=== PATIENT | male | born 1940 | race Caucasian/White ===

== ENCOUNTER 2019-03-28 21:14 | Inpatient (IN) | payer MEDICARE, OTHER ==
[~2019-03-28] VITALS: Ht 180.3 cm; Wt 145.0 kg
[2019-03-28] MEDS ORDERED: ONDANSETRON HCL 4 MG/2 ML VIAL ONE (21:34)
[2019-03-28] MEDS ORDERED: ONDANSETRON HCL 4 MG/2 ML VIAL IV ONE (21:45)
[2019-03-28] MEDS ORDERED: PROMETHAZINE HCL 25 MG/ML 1ML ONE (22:11)
[2019-03-28] MEDS ORDERED: methylPREDNISolone SOD SUCC 125 MG/2 ML VL ONE (22:11)
[2019-03-28] MEDS ORDERED: ALBUTEROL SULF 2.5 MG/0.5ML(0.5%) NEB SOLN NEB ONE (22:30)
[2019-03-28] MEDS ORDERED: PROMETHAZINE HCL 25 MG/ML 1ML IV ONE (22:30)
[2019-03-28] MEDS ORDERED: methylPREDNISolone SOD SUCC 125 MG/2 ML VL IV ONE (22:30)
[2019-03-28] MEDS ORDERED: IPRATROPIUM BROM 0.5 MG/2.5ML INH SOL NEB ONE (22:30)
[2019-03-28 22:32] LABS: Basophils # (auto) 0 uL; Basophils % (auto) 0.3 % (0.0-2.0); Eosinophils # (auto) 0.3 uL; Eosinophils % (auto) 2.4 % (0.0-7.0); Hematocrit 48.3 % (41.0-53.0); Hemoglobin 16.2 g/dL (13.5-17.5); Lymphocytes # (auto) 0.9 uL; Lymphocytes % (auto) 6.9 % (10.0-50.0); Mean Corpuscular Hemoglobin 29.7 pg (28.0-32.0); Mean Corpuscular Hgb Conc. 33.6 g/dL (32.0-36.0); Mean Corpuscular Volume 88.5 fL (80.0-100.0); Monocytes # (auto) 1.2 uL; Neutrophils # (auto) 10.4 uL; Neutrophils % (auto) 81.4 % (37.0-80.0); Platelet Count (auto) 176 10^3/uL (140-450); Red Blood Cells 5.45 10^6/uL (4.5-5.90); Red Cell Distribution Width 13.3 % (11.8-14.3); White Blood Cell 12.8 10^3/uL (4.4-10.8)
[2019-03-28 22:49] LABS: Alanine Aminotransferase 48 U/L (16-61); Albumin 3.8 g/dL (3.4-5.0); Anion Gap 7 (5-15); Aspartate Aminotransferase 35 U/L (15-37); BUN/Creatinine Ratio 10.3; Blood Urea Nitrogen 12 mg/dL (7-18); Calcium 8.3 mg/dL (8.5-10.1); Carbon Dioxide 22 mmol/L (21-32); Chloride 111 mmol/L (98-107); GFR African American 78 mL/min; GFR Non-African American 64 mL/min; Glucose 129 mg/dL (74-106); Potassium 4.2 mmol/L (3.5-5.1); Sodium 140 mmol/L (136-145)
[2019-03-28 22:52] LABS: Alkaline Phosphatase 69 U/L (45-117); Amylase 64 U/L (25-115); Bilirubin, Total 0.5 mg/dL (0.2-1.0); Lipase 316 U/L (73-393); Total Protein 7.1 g/dL (6.4-8.2)
[2019-03-28] MEDS ORDERED: FUROSEMIDE 40 MG/4 ML VIAL IV ONE (23:30)
[2019-03-29 00:49] LABS: Urine WBC None Seen /hpf (0 - 3)
[2019-03-29 01:04] LABS: Urine Bacteria FEW /hpf (None Seen); Urine Blood Negative /uL (Negative); Urine Specific Gravity 1.004 (1.001-1.035)
[2019-03-29] MEDS ORDERED: PRA25T PO (01:37)
[2019-03-29] MEDS ORDERED: ALBUAER3 IN (01:37)
[2019-03-29] MEDS ORDERED: TADA5TAB11 PO (01:37)
[2019-03-29] MEDS ORDERED: ROSU20TA14 PO (01:37)
[2019-03-29] MEDS ORDERED: CLOP75TA41 PO (01:37)
[2019-03-29] MEDS ORDERED: CARV25TA55 PO (01:37)
[2019-03-29] MEDS ORDERED: PREG100C PO (01:37)
[2019-03-29] MEDS ORDERED: TAMS1CAP25 PO (01:37)
[2019-03-29] MEDS ORDERED: PANT1INJ3 IV (01:37)
[2019-03-29] MEDS ORDERED: HYDR25TA4 PO (01:37)
[2019-03-29] MEDS ORDERED: ACLI1AER2 IN ×2 (01:37)
[2019-03-29] MEDS ORDERED: DOCUSATE SOD 100 MG CAP PO PRN (02:00)
[2019-03-29] MEDS ORDERED: ONDANSETRON HCL 4 MG/2 ML VIAL IV PRN (02:00)
[2019-03-29] MEDS ORDERED: ACETAMINOPHEN 325 MG TAB PO PRN (02:00)
[2019-03-29] MEDS: cefTRIAXone 1GM/50ML D5W 50 ML IV SCH (03:02)
[2019-03-29 06:10] LABS: Basophils # (auto) 0 uL; Basophils % (auto) 0.1 % (0.0-2.0); Eosinophils # (auto) 0 uL; Eosinophils % (auto) 0.1 % (0.0-7.0); Hematocrit 50.9 % (41.0-53.0); Hemoglobin 17.2 g/dL (13.5-17.5); Lymphocytes # (auto) 0.5 uL; Lymphocytes % (auto) 3.8 % (10.0-50.0); Mean Corpuscular Hemoglobin 29.8 pg (28.0-32.0); Mean Corpuscular Hgb Conc. 33.8 g/dL (32.0-36.0); Mean Corpuscular Volume 88.3 fL (80.0-100.0); Monocytes # (auto) 0.2 uL; Monocytes % (auto) 1.9 % (0.0-12.0); Neutrophils # (auto) 11.7 uL; Neutrophils % (auto) 94.1 % (37.0-80.0); Platelet Count (auto) 195 10^3/uL (140-450); Red Blood Cells 5.76 10^6/uL (4.5-5.90); White Blood Cell 12.5 10^3/uL (4.4-10.8)
[2019-03-29 06:14] LABS: Chloride 111 mmol/L (98-107); Potassium 4.3 mmol/L (3.5-5.1); Sodium 141 mmol/L (136-145)
[2019-03-29 06:23] LABS: Anion Gap 7 (5-15); Blood Urea Nitrogen 17 mg/dL (7-18); Calcium 8.8 mg/dL (8.5-10.1); Carbon Dioxide 23 mmol/L (21-32); Cholesterol 152 mg/dL (< 200); GFR African American 68 mL/min; GFR Non-African American 56 mL/min; Glucose 151 mg/dL (74-106); HDL Cholesterol 50 mg/dL (40-59); LDL Cholesterol 92 mg/dL (< 100); Triglycerides 114 mg/dL (< 150)
[2019-03-29 09:00] VITALS: BP 163/92
--- NOTE | 2019-03-29 09:30 | NUR ---
Telemetry admit from ER LYNDSEY DIETRICH admitted to Telemetry unit after SBAR received. Patient oriented to Tanisha Chery RN primary RN, unit, room, bed, and unit policies regarding patient care and visiting hours. Patient now on continuous telemetry monitoring, tele box #[id number] and telemetry reading on arrival to unit is sinus tachycardia. Patient placed on oxygen at 5L nasal cannula. Bed is in the lowest position with 2x side rails up for safety and call light is within reach. Encouraged to call if they need something. All questions and concerns addressed, patient verbalized understanding.
[2019-03-29 13:00] VITALS: BP 151/78
[2019-03-29] MEDS ORDERED: MEMA1CAP PO (14:13)
--- NOTE | 2019-03-29 14:25 | NUR ---
Donta quintanilla Patient's blood pressure is 152/78. Waiting for call back.
[2019-03-29] MEDS: D5W/SOD CHL 0.45% 1,000 ML IV SCH (15:57)
--- NOTE | 2019-03-29 16:19 | NUR ---
NG TUBE ATTEMPTED NG TUBE INSERTION X2 FROM THIS JOSE GUILLEN AND JOSE CUENCA. PATIENT RESISTING AND DIFFICULT TO ADVANCE BECAUSE OF THIS. PATIENT STATES HE DOES NOT THINK HE CAN GO THROUGH WITH THE NG TUBE INSERTION. EDUCATED PATIENT ON THE NEED TO HAVE NG TUBE PLACED FOR BOWEL OBSTRUCTION. PATIENT STILL REFUSING AT THIS TIME. I WILL TOLD PATIENT I WILL RETURN AND SEE IF HE HAS CHANGED HIS MIND.
--- NOTE | 2019-03-29 16:21 | NUR ---
RECEIVED PATIENT TO THE FLOOR. AWAKE ALERT AND ORIENTED. EDUCATED PATIENT ON THE PLAN OF CARE AND TO CALL IF HE NEEDS ANYTHING, BED LOCKED IN LOWEST POSITION WITH TWO SIDE RAILS UP AND CALL LIGHT IN REACH. Addendum: 03/29/19 at 1623 by Juana Mullins RN RN WRONG TIME ENTERED . TIME SHOULD BE CHARTED AT 0940
[2019-03-29 17:00] VITALS: BP 132/85
--- NOTE | 2019-03-29 17:35 | NUR ---
Pt refusing NG tube Pt refusing NG tube, educated on need for it and patient is still refusing. Will continue to monitor.
--- NOTE | 2019-03-29 18:28 | NUR ---
RECEIVED CALL FROM DR DAWKINS PER DR DAWKINS PATIENT DOES NOT NEED NG TUBE DUE TO BOWEL MOVEMENT TODAY. HE WILL BE IN TO SEE PATIENT TOMORROW.
--- NOTE | 2019-03-29 19:30 | NUR ---
Opening Shift Note Assumed care of patient, awake and alert x4. Family members noted at the bedside. Patient denies pain or shortness of breath at this time. No signs/symptoms of distress noted. Instructed on plan of care and to call for assistance as needed. Bed is locked in lowest position, side rails x 2 are up, call light is within reach, and bed alarm is on.
--- NOTE | 2019-03-29 20:30 | NUR ---
DR. CALLAHAN AT BEDSIDE Dr. Callahan at bedside discussing plan of care with patient.
[2019-03-29] MEDS: CARVEDILOL 12.5 MG TAB PO SCH (21:46)
[2019-03-29] MEDS: PRAMIPEXOLE DIHYDROCHLORIDE MO 0.25 MG TAB PO SCH (21:46)
[2019-03-29] MEDS: metroNIDAZOLE 500MG/100ML 100 ML IV SCH (21:47)
[2019-03-29 21:57] VITALS: BP 135/81
[2019-03-30] MEDS: cefTRIAXone 1GM/50ML D5W 50 ML IV SCH (02:57)
[2019-03-30 03:58] VITALS: BP 114/99
[2019-03-30 04:14] VITALS: BP 144/80
[2019-03-30] MEDS: metroNIDAZOLE 500MG/100ML 100 ML IV SCH ×3 (06:12→21:00)
[2019-03-30 06:37] LABS: Basophils # (auto) 0 uL; Basophils % (auto) 0.1 % (0.0-2.0); Eosinophils # (auto) 0 uL; Eosinophils % (auto) 0.1 % (0.0-7.0); Hematocrit 45.4 % (41.0-53.0); Hemoglobin 15.2 g/dL (13.5-17.5); Lymphocytes % (auto) 11.6 % (10.0-50.0); Mean Corpuscular Hemoglobin 29.7 pg (28.0-32.0); Mean Corpuscular Hgb Conc. 33.4 g/dL (32.0-36.0); Mean Corpuscular Volume 88.9 fL (80.0-100.0); Monocytes # (auto) 1.2 uL; Monocytes % (auto) 14.1 % (0.0-12.0); Neutrophils # (auto) 6.3 uL; Neutrophils % (auto) 74.1 % (37.0-80.0); Platelet Count (auto) 165 10^3/uL (140-450); Red Blood Cells 5.11 10^6/uL (4.5-5.90); Red Cell Distribution Width 13.3 % (11.8-14.3); White Blood Cell 8.5 10^3/uL (4.4-10.8)
[2019-03-30 06:46] LABS: Potassium 3.7 mmol/L (3.5-5.1)
[2019-03-30 06:54] LABS: BUN/Creatinine Ratio 24.8; Calcium 7.9 mg/dL (8.5-10.1)
--- NOTE | 2019-03-30 07:10 | NUR ---
Respiratory note: TOOK PATIENT OFF BIPAP AND PLACED ON 5L N/C. NO RESP DISTRESS NOTED . HR 71, RR 16, SPO2 97%. BEDSIDE POX AT BEDSIDE.
--- NOTE | 2019-03-30 07:30 | NUR ---
Opening Shift Note Assumed care of patient, awake, alert, and oriented. No S/S of distress/SOB or pain. Instructed on POC and to call for assist PRN with call light within reach. Bed in low/locked position, bed rails up x2. will continue to monitor for changes Q1hr and PRN.
--- NOTE | 2019-03-30 08:12 | NUR ---
PHONE CALL [facility]I FROM [facility] CALLED RE:PATIENT WEIGHT IS OVER THE LIMIT FOR MRI. WILL NOTIFY
--- NOTE | 2019-03-30 08:13 | NUR ---
PAGED PAGED DR CALLAHAN RE: PATIENT WEIGHT IS OVER THE LIMIT FOR MRI MACHINE
[2019-03-30 08:32] LABS: Ferritin 141.7 ng/mL (10-322)
[2019-03-30 08:33] LABS: Folate (Folic Acid) 9.08 ng/mL (5.38-24)
[2019-03-30] MEDS: HCTZ 25 MG TAB PO SCH (08:49)
[2019-03-30] MEDS: CARVEDILOL 12.5 MG TAB PO SCH ×2 (08:49→21:00)
[2019-03-30] MEDS: D5W/SOD CHL 0.45% 1,000 ML IV SCH (08:51)
[2019-03-30 09:27] VITALS: BP 148/80
[2019-03-30] MEDS: ASPirin 81 mg TAB PO SCH (09:45)
[2019-03-30] MEDS: CLOPIDOGREL BISULFATE 75 MG TAB PO SCH (09:45)
--- NOTE | 2019-03-30 09:45 | NUR ---
ORTHOSTATIC VITAL SIGNS PER INGRID ABDUL, ORTHOSTATIC VS; LAYING 131/76 mmHg SITTING 157/92 mmHg STANDING 158/89 mmHg will notify FRANKO Charles Addendum: 03/30/19 at 1005 by REMY PADGETT RN RN laying HR 69 bpm sitting HR 71 bpm standing HR 75 bpm
[2019-03-30] MEDS ORDERED: CLOPIDOGREL BISULFATE 75 MG TAB PO SCH (10:00)
[2019-03-30] MEDS ORDERED: ASPirin 81 mg TAB PO SCH (10:00)
--- NOTE | 2019-03-30 11:13 | NUR ---
PAGED MD FERNANDEZ DAWKINS RE: CONSULT PER PATIENT AND FAMILY REQUEST
[2019-03-30 12:57] VITALS: BP 142/80
--- NOTE | 2019-03-30 15:06 | NUR ---
PHONE CALL CALLED DR DAWKINS'S OFFICE RE: PATIENT CONSULT. SPOKE WITH DR DAWKINS. DR DAWKINS SAID "HE WILL ASSESS PATIENT TONIGHT."
[2019-03-30 16:33] VITALS: BP 127/80
--- NOTE | 2019-03-30 16:33 | NUR ---
IV removal IV DC'd with clean sterile technique, catheter fully intact. Pressure dressing applied to site. Patient tolerated well. IV insertion IV access obtained, via clean sterile technique by inserting 20 gauge catheter at [facility] after 3 attempts. IV secured properly. No trauma to site. Patient tolerated well.
--- NOTE | 2019-03-30 17:32 | NUR ---
PT REPORTS THAT HE IS DOING FINE AND DOES NOT NEED P.T.
--- NOTE | 2019-03-30 19:30 | NUR ---
Opening Shift Note Assumed care of patient, awake and alert x4. Son noted at bedside. Patient denies pain or shortness of breath at this time. No signs/symptoms of distress noted. Instructed on plan of care and to call for assistance as needed. Bed is locked in lowest position, side rails x 2 are up, call light is within reach, and bed alarm is on.
--- NOTE | 2019-03-30 20:20 | NUR ---
DR. DAWKINS AT BEDSIDE Dr. Dawkins at bedside. Discussing plan of care with patient.
[2019-03-30] MEDS: PRAMIPEXOLE DIHYDROCHLORIDE MO 0.25 MG TAB PO SCH (20:59)
[2019-03-30] MEDS: ATORVASTATIN 20 MG TAB PO SCH (21:00)
[2019-03-30] MEDS ORDERED: ALBUTEROL SULF 2.5 MG/0.5ML(0.5%) NEB SOLN NEB PRN (21:00)
--- NOTE | 2019-03-30 21:02 | NUR ---
Respiratory note: PLACED PT ON BIPAP B9, BIPAP CONNECTED TO RED OUTLET AN O2 SOURCE. ALARMS ARE SET AND AUDIBLE. PT ON SIZE M MASK, NO BREAKDOWN NOTED PRIOR TO PLACEMENT. CONT. POX AT BEDSIDE PER PROTOCOL. PROBE ON LEFT INDEX FINGER. RT NAME AND PAGER ASSIGNMENT WRITTEN ON PTS ROOM BOARD. PT AWARE HE CAN HAVE ME PAGED AT ANY TIME HE FEELS SOB OR HAVING ANY CONCERN WITH EQUIPMENT. RN FIDELINA AT BEDSIDE AND AWARE OF PLACEMENT.
--- NOTE | 2019-03-30 21:05 | NUR ---
Respiratory note: AT BEDSIDE FOR BIPAP PLACEMENT. PT NOT READY AT THIS TIME WILL BE PAGED BY RN WHEN PT IS READY. RN AT BEDSIDE AND AWARE OF PAGER ASSIGNMENT.
[2019-03-30 21:39] VITALS: BP 133/71
--- NOTE | 2019-03-30 23:58 | NUR ---
Respiratory note: AT BEDSIDE FOR ROUTINE BIPAP CHECK. PT COMFORTABLY SLEEPING AT THIS TIME. WILL CONTINUE TO MONITOR.
[2019-03-31] MEDS: cefTRIAXone 1GM/50ML D5W 50 ML IV SCH (02:38)
--- NOTE | 2019-03-31 02:41 | NUR ---
Respiratory note: AT BEDSIDE FOR ROUTINE BIPAP CHECK NO CHANGE MADE AT THIS TIME.PT COMFORTABLY SLEEPING.
--- NOTE | 2019-03-31 05:00 | NUR ---
ORTHOSTATIC VITAL SIGNS Supine: BP: 128/67, HR: 57 Sitting: BP: 150/86, HR: 65 Standing: BP: 185/108, HR: 74
--- NOTE | 2019-03-31 05:40 | NUR ---
RT PAGED RT paged due to BIPAP alarming low pressure. Patients oxygen saturation is 94%, no signs/symptoms of distress noted at this time.
[2019-03-31 05:45] VITALS: BP 128/67
--- NOTE | 2019-03-31 06:04 | NUR ---
RT NOTE: CALLED TO PT ROOM DUE TO BIPAP ALARMING. DISCONNECT OF CLEAR TUBING CAUSING LOW PRESSURE AND DISCONECT ALARMS. RECONNECTED. NO SIGNS OF RESPIRATORY DISTRESS NOTED AT THIS TIME. PT STILL SLEEPING. NO TX INDICATED AT THIS TIME. WILL CONTINUE TO MONITOR.
[2019-03-31] MEDS: metroNIDAZOLE 500MG/100ML 100 ML IV SCH ×3 (06:07→21:22)
[2019-03-31] MEDS: D5W/SOD CHL 0.45% 1,000 ML IV SCH (06:41)
--- NOTE | 2019-03-31 07:20 | NUR ---
Opening Shift Note Assumed care of patient, awake and alert. No S/S of distress/SOB or pain. Instructed on POC and to call for assist PRN, will continue to monitor for changes Q1hr and PRN.
[2019-03-31 08:06] LABS: Immunoglobulin G, Serum 506 mg/dL (700-1600)
--- NOTE | 2019-03-31 08:30 | NUR ---
RT NOTE: PT TAKEN OFF OF BIPAP AND PLACED ONTO 5L NC. NO SIGNS OF DISTRESS. LUNG SOUNDS CLEAR DIMINISHED. SPO2 99 HR 65 RR 22. FAMILY AND RN BEDSIDE. PT AWARE TO PAGE FOR TX IF NEEDED. WILL CONTINUE TO MONITOR.
[2019-03-31 09:00] VITALS: BP 129/75
[2019-03-31] MEDS ORDERED: CYANOCOBALAMIN (B-12) 1000 MCG/1 ML VIAL IM ONE (09:15)
[2019-03-31] MEDS: CARVEDILOL 12.5 MG TAB PO SCH ×3 (10:36→21:33)
[2019-03-31] MEDS: HCTZ 25 MG TAB PO SCH (10:37)
[2019-03-31] MEDS: CLOPIDOGREL BISULFATE 75 MG TAB PO SCH (10:37)
[2019-03-31] MEDS: ASPirin 81 mg TAB PO SCH (10:38)
[2019-03-31] MEDS: CYANOCOBALAMIN 500 MCG TAB PO SCH (10:38)
--- NOTE | 2019-03-31 12:30 | NUR ---
Dr. Longo, Hospitalist, at bedside.
[2019-03-31] MEDS ORDERED: FUROSEMIDE 20 MG/2 ML VIAL IV ONE (12:45)
[2019-03-31 13:00] VITALS: BP 128/70
--- NOTE | 2019-03-31 15:02 | NUR ---
Nutrition Assessment Notes please see attached link for complete assessment. Est. Needs ABW 117 [id number] kcal (17-20 kcal/kgBW), 117-128 gms pro (1.0-1.1 gms/kgBW). Will continue to monitor pertinent labs and reassess nutrient need prn Addendum: 03/31/19 at [address] Amended: Links added.
--- NOTE | 2019-03-31 16:36 | NUR ---
assessment Patient is a 78 year old male who is alert and oriented. Patients cognitive abilities are intact. Prior to admission patient lived home with family and functioned independently. Patient informed me he is able to care for his own ADLs. Per patient he will return home to his prior living arrangements post discharge and his Belinda will transport him home. Patient informed me he was admitted for choking then gasping and the passed out for about 10 to 15 seconds. Patients PCP is Dr Rg. Patient has a fww, but does not need to use it. Patient may need a home health for safety order on discharge. Patient has good family support. I informed patient he has a right to speak to a social director regarding all care. I informed patient he has a right to participate in any and all discharge planning. Patient has a POA and advanced directive. Patient verbalized understanding and agreed to discharge plan. Addendum: 03/31/19 at 1640 by Qing PROCTOR Amended: Links added.
[2019-03-31 17:00] VITALS: BP 134/68
--- NOTE | 2019-03-31 19:30 | NUR ---
Opening Shift Note Assumed care of patient, awake and alert x4. Patient denies pain or shortness of breath at this time. No signs/symptoms of distress noted. Instructed on plan of care and to call for assistance as needed, patient verbalized understanding. Bed is locked in lowest position, side rails x 2 are up, call light is within reach, and bed alarm is on.
--- NOTE | 2019-03-31 19:49 | NUR ---
Respiratory note: PT ASSESSED FOR PRN MED NEB TX. PT IS CURRENTLY ON 5 L/M NC: HR 65, RR 20, SPO2 96%. PT SHOWS NO S/S OF SOB OR RESPIRATORY DISTRESS. MED NEB TX NOT INDICATED AT THIS TIME. PT AWARE TO CALL RESPIRATORY IF SOB OCCURS. WILL CONTINUE TO MONITOR.
[2019-03-31] MEDS: PRAMIPEXOLE DIHYDROCHLORIDE MO 0.25 MG TAB PO SCH (21:22)
[2019-03-31] MEDS: ATORVASTATIN 20 MG TAB PO SCH (21:22)
[2019-03-31 21:34] VITALS: BP 160/97
[2019-04-01 05:21] VITALS: BP 139/78
--- NOTE | 2019-04-01 06:02 | NUR ---
ORTHOSTATIC VITAL SIGNS Supine: BP: 151/87, HR: 64 Sitting: BP: 139/78, HR: 69 Standing: BP: 150/86, HR: 71 Patient denied dizziness or headache.
[2019-04-01] MEDS ORDERED: LIDOCAINE 1% HCL (LOCAL ANESTH.) INJ 20ML MDV ONE (06:58)
[2019-04-01] MEDS ORDERED: SUCCINYLCHOLINE CHLORIDE 20 MG/ML 10ML VIAL IV ONE (06:59)
--- NOTE | 2019-04-01 07:24 | NUR ---
RT NOTE: PRN BREATHING TX. NOT INDICATED AT THIS TIME. NO S/S OF SOB. PT. HR 60, RR 16, POX 95% R/A. PT. AWARE TO NOTIFY RN IF BREATHING TX. IS NEEDED.
[2019-04-01 08:00] VITALS: BP 155/93
--- NOTE | 2019-04-01 09:30 | NUR ---
Patient requesting to go back on Bi-pap; paged RT.
[2019-04-01 09:43] LABS: BUN/Creatinine Ratio 15.3; Calcium 8.7 mg/dL (8.5-10.1); Potassium 3.4 mmol/L (3.5-5.1)
[2019-04-01] MEDS: HCTZ 25 MG TAB PO SCH (10:00)
[2019-04-01] MEDS: CYANOCOBALAMIN 500 MCG TAB PO SCH (10:00)
[2019-04-01] MEDS: CARVEDILOL 12.5 MG TAB PO SCH ×2 (10:00→22:38)
[2019-04-01] MEDS: ASPirin 81 mg TAB PO SCH (10:00)
[2019-04-01] MEDS: CLOPIDOGREL BISULFATE 75 MG TAB PO SCH (10:00)
[2019-04-01 12:00] VITALS: BP 146/82
[2019-04-01 17:00] VITALS: BP 126/72
[2019-04-01] MEDS ORDERED: POTASSIUM CHL 20 Meq TABLET PO ONE (18:45)
--- NOTE | 2019-04-01 19:30 | NUR ---
Opening Shift Note Assumed care of patient, awake and alert. No S/S of distress/SOB or pain. Tolerated dinner ok. at bedside. Instructed on POC and to call for assist PRN, will continue to monitor for changes Q1hr and PRN.
[2019-04-01 20:00] VITALS: BP 121/63
--- NOTE | 2019-04-01 20:16 | NUR ---
Respiratory note: ASSESSMENT FOR PRN MED NEB TX. PT PRESENTING NO RESPIRATORY DISTRESS AT THIS TIME. HR 65, SPO2 94% ROOM AIR, RR 16, BS DIMINISHED. NOTIFIED PT TO HAVE RN PAGE FOR MED NEB TX IF NEEDED. WILL CONTINUE TO MONITOR.
[2019-04-01 22:00] VITALS: BP 123/68
[2019-04-01] MEDS: ATORVASTATIN 20 MG TAB PO SCH (22:38)
[2019-04-01] MEDS: PRAMIPEXOLE DIHYDROCHLORIDE MO 0.25 MG TAB PO SCH (22:38)
[2019-04-02 00:08] VITALS: BP 123/68
[2019-04-02 05:13] VITALS: BP 134/68
--- NOTE | 2019-04-02 07:30 | NUR ---
Opening Note Received report from swimming coach or instructor RN. Patient is awake, alert and oriented x4. No signs or symptoms of distress noted at this time. Patient is on room air, respirations even and unlabored. Patient denies pain at this time. Reviewed plan of care with patient, patient verbalized understanding. Bed in low and locked position, call light within reach. Will continue to monitor Q1 hour and PRN.
--- NOTE | 2019-04-02 08:10 | NUR ---
Respiratory note: PT AWAKE, AND ALERT. NO RESPIRATORY DISTRESS NOTED. SPO2 92% ON RA, HR 66, RR 20, BS CLEAR/DIMINISHED T/O. PRN MEDNEB TX NOT INDICATED. PT INFORMED TO PUSH CALL BUTTON IF INCREASED WOB, SOB, OR WHEEZING OCCURS.
[2019-04-02 09:00] VITALS: BP 117/70
--- NOTE | 2019-04-02 09:15 | NUR ---
at bedside Updated on plan of care. Will continue to monitor Q1 hour and PRN.
[2019-04-02] MEDS: CLOPIDOGREL BISULFATE 75 MG TAB PO SCH (10:00)
[2019-04-02] MEDS: CYANOCOBALAMIN 500 MCG TAB PO SCH (10:00)
[2019-04-02] MEDS: ASPirin 81 mg TAB PO SCH (10:00)
[2019-04-02] MEDS: HCTZ 25 MG TAB PO SCH (10:01)
[2019-04-02] MEDS: CARVEDILOL 12.5 MG TAB PO SCH (10:01)
[2019-04-02 13:00] VITALS: BP 156/90
--- NOTE | 2019-04-02 13:32 | NUR ---
Dr. Longo at bedside Discussing plan of care with patient and . Patient to discharge home today. Will continue to monitor Q1 hour and PRN.
[2019-04-02 16:28] VITALS: BP 156/90
--- NOTE | 2019-04-02 16:50 | NUR ---
Discharge Discharge instructions given as ordered. Encourage to follow up with PMD as instructed. All questions and concerns addressed. Patient verbalized understanding. Medication reconciliation form completed and copy given to patient. IV removed with catheter intact, pressure dressing applied, patient tolerated well. Patient taken to private vehicle via wheelchair, with all personal belongings. Accompanied by staff member and family. No signs or symptoms of distress noted at this time.
[2019-04-02 17:00] VITALS: BP 172/99
== END 2019-04-02 16:50 | disposition home or self-care (01) | DRG 388 ==
LOC: ER 21:14 → EDBD 21:14 → TELE 21:15 → TELE-WESTW 03-29 08:40 → WEST WING 03-31 23:08
PROVIDERS: ADMIT Emergency Medicine; ATTEND Internal Medicine Nephrology
PROC: 5A09357 Assistance with Respiratory Ventilation, Less than 24 Consecutive Hours, Continuous Positive Airway Pressure (ICD-10-PCS; 2019-03-29)
PROC: 5A09357 Assistance with Respiratory Ventilation, Less than 24 Consecutive Hours, Continuous Positive Airway Pressure (ICD-10-PCS; 2019-03-30)
PROC: 5A09357 Assistance with Respiratory Ventilation, Less than 24 Consecutive Hours, Continuous Positive Airway Pressure (ICD-10-PCS; 2019-03-31)
PROC: 5A09357 Assistance with Respiratory Ventilation, Less than 24 Consecutive Hours, Continuous Positive Airway Pressure (ICD-10-PCS; 2019-04-01)
PROC: 5A09357 Assistance with Respiratory Ventilation, Less than 24 Consecutive Hours, Continuous Positive Airway Pressure (ICD-10-PCS; principal; 2019-04-02)
DX: K56.600 Partial intestinal obstruction, unspecified as to cause (principal); J96.21 Acute and chronic respiratory failure with hypoxia; Z68.43 Body mass index [BMI] 50.0-59.9, adult; R65.10 Systemic inflammatory response syndrome (SIRS) of non-infectious origin without acute organ dysfunction; E66.01 Morbid (severe) obesity due to excess calories; I25.10 Atherosclerotic heart disease of native coronary artery without angina pectoris; G62.9 Polyneuropathy, unspecified; G47.33 Obstructive sleep apnea (adult) (pediatric); I50.9 Heart failure, unspecified; F03.90 Unspecified dementia, unspecified severity, without behavioral disturbance, psychotic disturbance, mood disturbance, and anxiety; F17.210 Nicotine dependence, cigarettes, uncomplicated; G25.81 Restless legs syndrome; G47.30 Sleep apnea, unspecified; I45.10 Unspecified right bundle-branch block; J98.01 Acute bronchospasm; K52.9 Noninfective gastroenteritis and colitis, unspecified; Z96.653 Presence of artificial knee joint, bilateral; E87.6 Hypokalemia; J43.9 Emphysema, unspecified; Z95.5 Presence of coronary angioplasty implant and graft; Z79.02 Long term (current) use of antithrombotics/antiplatelets; Z79.899 Other long term (current) drug therapy; Z85.828 Personal history of other malignant neoplasm of skin; Z88.6 Allergy status to analgesic agent
CPT/HCPCS: 36415; 70450; 71045; 74176; 80048; 80053; 80061; 81001; 82150; 82607; 82728; 82746; 82784; 82962; 83036; 83540; 83550; 83605; 83690; 83735; 83880; 84132; 84443; 84484; 85025; 85379; 86334; 93005; 93306; 93886; 94640; 94660; 95819; 96365; 96375; G0378; J0330; J0696; J2001; J2405; J3490

== ENCOUNTER → 2019-05-07 | Outpatient (CLI) | payer MEDICARE, OTHER ==
[~2019-05-07] MED LIST: ACLI1AER2 IN; ALBUAER3 IN; CARV25TA55 PO; CLOP75TA41 PO; HYDR25TA4 PO; MEMA1CAP PO; PRA25T PO; PREG100C PO; ROSU20TA14 PO; TADA5TAB11 PO; TAMS1CAP25 PO
== END | disposition home or self-care (01) ==
LOC: LAB 09:51
PROVIDERS: ATTEND Psychiatry & Neurology Neurology
DX: G62.9 Polyneuropathy, unspecified (principal); Z13.1 Encounter for screening for diabetes mellitus
CPT/HCPCS: 36415; 82951